=== PATIENT | female | born 1975 | race Caucasian/White ===

== ENCOUNTER 2023-03-19 02:08 | Emergency (ER) | payer BC, SELFPAY ==
--- NOTE | ~2023-03-19 | XR_ITS ---
Clinical Indication: Chest heaviness PA and lateral views of the chest: Comparison: None Findings: The lungs are clear, without evidence of focal consolidation or pleural effusion. Cardiome diastinal silhouette is within normal limits. Bones and soft tissues are unremarkable. Impression: Normal chest. Reviewed, dictated and finalized at location . Impression: Normal chest.
[2023-03-19 02:11] VITALS: BP 144/92; PULSE 90; RESP 14; TEMP 36.3; O2SAT 100
--- NOTE | 2023-03-19 02:31 | ECG_ITS ---
Measurements Intervals [place] Rate: 75 P: 28 NH: 163 QRS: 11 QRSD: 81 T: 5 QT: 358 QTc: 402 Interpretive Statements SINUS RHYTHM WITH SINUS ARRHYTHMIA NONSPECIFIC T-WAVE ABNORMALITY ABNORMAL ECG NO PREVIOUS ECG AVAILABLE FOR COMPARISON Electronically Signed On 03-19-2023 10:27:05 CDT by Thom Boland M.D.
--- NOTE | 2023-03-19 02:32 | ED.ANXIETY ---
HPI - Anxiety General Chief Complaint: Anxiety <Anna Bradshaw PA-C - Last Filed: 03/19/23 04:12> Stated Complaint: anxiety attack <Anna Bradshaw PA-C - Last Filed: 03/19/23 04:12> Time Seen by Provider: 03/19/23 02:16 <Anna Bradshaw PA-C - Last Filed: 03/19/23 04:12> History of Present Illness HPI narrative: 47-year-old female reports for evaluation with complaints of anxiety. Patient states she is traveling from [place] to visit family in the area and was talking with her mother this evening regarding her brother's that occurred a few years ago. Patient states after her mother left she became very upset and began having which she could only describe as a panic attack. States she began shaking and states that she felt she could not take a full deep breath. Reports nausea and intermittent mild frontal headaches since. She also is reporting a chest heaviness , denies chest pain and current dyspnea. States she has been laying in the dark without improvement and was having difficulty sleeping. She took 2 Benadryl without relief, therefore came to the ED. States she had a panic attack approximately 6 years ago during her divorce which presented similarly. Reports at that time she saw her PCP who prescribed Xanax with significant improvement. She does state the past couple of months she has felt more tearful and feels that she has not processed her brothers . She has not talked to her PCP about this but is planning to. She also states he is desiring to start seeing a counselor. She denies SI/HI and depression. <Anna Bradshaw PA-C - Last Filed: 03/19/23 04:12> Related Data Allergies/Adverse Reactions: Allergies Allergy/AdvReac Type Severity Reaction Status Date / Time No Known Allergies Allergy Mild Verified 03/19/23 02:08 <Anna Bradshaw PA-C - Last Filed: 03/19/23 04:12> Review of Systems Review of Systems: CONSTITUTIONAL: Denies fever, chills EYES: Denies visual changes, redness, or discharge. ENT: Denies rhinorrhea, congestion, sore throat, or otalgia. CARDIOVASCULAR: See HPI RESPIRATORY: Denies cough or dyspnea. GASTROINTESTINAL: See HPI GENITOURINARY: Denies dysuria or hematuria. SKIN: Denies rash or itching. MUSCULOSKELETAL: Denies back pain, joint pain, or myalgia. NEUROLOGIC: See HPI PSYCHIATRIC: Denies anxiety or depression. <Anna Bradshaw PA-C - Last Filed: 03/19/23 04:12> Exam Narrative: GENERAL: Well-appearing, in no acute distress. Patient resting comfortably in exam bed. She is pleasant and conversational. HEAD: Normocephalic EYES: PERRLA ENT: Nares clear. Mucous membranes moist. Oropharynx without tonsillar hypertrophy exudate or other lesions. NECK: Supple. CHEST: No respiratory distress. Clear to auscultation, no adventitious breath sounds. HEART: Regular rate and rhythm. No murmur heard. Normal peripheral pulses. ABDOMEN: Soft, nontender, normal active bowel sounds. EXTREMITIES: Normal range of motion. No edema. SKIN: Warm, dry, no rash. NEURO: No focal deficits. Alert and oriented x3. Cranial nerves II through XII intact. Strength 5/5 in BUE and BLE. Sensation intact throughout. No ataxia or dysarthria. PSYCH: Patient appears anxious. No SI or HI. Normal judgment, appearance and speech. Normal cognition. No delusions. <Anna Bradshaw PA-C - Last Filed: 03/19/23 04:12> Course Reevaluation(s) Reevaluation #1: Patient reports she feels more relaxed after her ativan. She is from out of town and she is leaving tomorrow. This appears to be related to anxiety and she states she will see counselor on return home. <Disha Jiménez MD - Last Filed: 03/19/23 06:24> Date: 03/19/23 <Disha Jiménez MD - Last Filed: 03/19/23 06:24> Time: 06:19 <Disha Jiménez MD - Last Filed: 03/19/23 06:24> Vital Signs Vital signs: Vital Signs Temperature 97.4 F L 03/19/23 02:11 Pulse Rate 90 0
[2023-03-19] MEDS: LORazepam (*CRX) 1 MG TABLET PO (02:48)
[2023-03-19] MEDS: ONDANSETRON HCL ODT 4 MG TABLET PO (02:48)
[2023-03-19 03:41] LABS: Basophils Percent Auto 0.4 % (0.2-1.2); Eosinophils Percent Auto 0.4 % (0-4.4); Hematocrit 36.7 % (37.0-47.0); Hemoglobin 12.1 g/dL (12.0-15.0); Immature Granulocyte Absolute 0.01 K/mm3 (0.00-0.031); Immature Granulocyte Percent A 0.1 % (0-0.5); Lymphocytes Absolute Auto 1.17 K/mm3 (0.9-3.2); Lymphocytes Percent Auto 16.5 % (18.3-44.2); Mean Corpuscular Hemoglobin 30.8 pg (26-34); Mean Corpuscular Volume 93.4 fl (80-100); Mean Platelet Volume 10.4 fl (7.4-10.4); Monocytes Absolute Auto 0.3 K/mm3 (0.1-0.6); Monocytes Percent Auto 4.8 % (2.6-8.5); Neutrophils Absolute Auto 5.5 K/mm3 (1.3-6.7); Neutrophils Percent Auto 77.8 % (45.5-73.1); Platelet Count Result 240 k/mm3 (150-375); Red Blood Count 3.93 M/mm3 (4.2-5.4); Red Cell Distribution Width 12.4 % (11.5-14.5); White Blood Count 7.1 K/mm3 (4.5-10.0)
[2023-03-19 03:53] LABS: Alanine Aminotransferase 17 U/L (6-35); Albumin Level 4.2 g/dL (3.5-5.1); Alkaline Phosphatase 52 U/L (38-126); Anion Gap 9 mmol/L (8-16); Aspartate Amino Transferase 24 U/L (14-36); Bilirubin,Total 0.3 mg/dL (0.2-1.3); Blood Urea Nitrogen 20 mg/dL (7-17); Calcium 8.9 mg/dL (8.4-10.2); Carbon Dioxide 22 mmol/L (22-30); Chloride 105 mmol/L (98-107); Estimated CRCL calculation 97 ml/min; Estimated Glomerular Filt Rate > 60; Glucose 110 mg/dL (65-110); Potassium 3.8 mmol/L (3.4-5.0); Sodium 136 mmol/L (137-145)
[2023-03-19 04:04] LABS: Troponin I < 0.012 ng/mL (0.000-0.034)
[2023-03-19 04:24] VITALS: BP 106/70; PULSE 90; RESP 14; O2SAT 100
[2023-03-19 06:03] LABS: Troponin I < 0.012 ng/mL (0.000-0.034)
[2023-03-19 06:28] VITALS: BP 112/74; PULSE 88; RESP 15; O2SAT 100
== END 2023-03-19 06:29 | disposition home or self-care (01) ==
PROVIDERS: General Practice; Emergency Provider Physician Assistant
DX: F41.9 Anxiety disorder, unspecified (principal); R94.31 Abnormal electrocardiogram [ECG] [EKG]
CPT/HCPCS: 36415; 71046; 80053; 84484; 85025; 93005; 99283; A9270